=== PATIENT | female | born 1930 | race Caucasian/White ===

== ENCOUNTER 2017-12-02 14:03 | Emergency (ER) | payer MEDICARE ==
[2017-09-02 15:39] VITALS: BMI 20.1
[~2017-12-02 14:03] MED LIST: ACTOS; ASPI-1471 PO; AZIT-1 PO; BENAZEPRIL; BLOO-1318 MC; BLOO-1322 MC; BLOO-1623 MC; BLOO-188 MC; CEPH500C24 PO; CHOL10005 PO; CIPR-214 PO; CYCL-277 PO; HCTZ; INSU100I30 SQ; LANC-1149 MC; LANI SUBQ; LISI-353 PO; LISI-362 PO; LOVA40TA89 PO; LOVASTATIN; MELO-205 PO; METF-420 PO; METFORMIN; NIFE30TA7 PO; PER PO; PRE20 PO; SITA100T PO; [UNRECOGNIZED DRUG - CODE] MC; lantus
--- NOTE | 2017-12-02 14:11 | ER Report ---
History and Physical Time Seen By MD: 14:10 HPI/ROS CHIEF COMPLAINT: Dizziness HISTORY OF PRESENT ILLNESS: 86-year-old female patient presents to emergency room with complaint of dizziness. Patient states that this been going on for the last 2 days. She states that she had dizziness yesterday morning, which seemed to resolve in the afternoon. She states that this morning she was in the kitchen and felt so dizzy that she thought she was going to faint. She walked into the living room and sat down in a chair. EMS was contacted. They did come in and evaluate the patient. Patient was then brought in by her significant other to the emergency room. Patient denies having any fevers, chills, nausea, vomiting or diarrhea. Patient denies any recent changes in her medication regimen. REVIEW OF SYSTEMS: Respiratory: No cough, no dyspnea. Cardiovascular: No chest pain, no palpitations. Gastrointestinal: No vomiting, no abdominal pain. Musculoskeletal: No back pain. Allergies: Coded Allergies: No Known Allergies (Verified Allergy, Mild, 01/16/12) Home Meds Active Scripts Scopolamine (TRANSDERM-SCOP) 1.5 Mg Patch, 1.5 MG TD Q3D Y for DIZZINESS, #3 PATCH Prov:BILL LLAMAS DOUBLE BOTTOM DRIVER 12/02/17 Nifedipine (NIFEDIPINE ER) 30 Mg Tablet.er, 1 TAB PO DAILY, #90 TAB 1 Refill Prov:PETER SUBRAMANIAN MD 10/15/17 Metformin Hcl (METFORMIN HCL) 1,000 Mg Tablet, 1 TAB PO BID, #180 TAB 4 Refills Prov:PETER SUBRAMANIAN MD 10/11/17 Insulin Glargine (LANTUS) 100 Unit/Ml Soln, 5-20 UNIT SUBQ BID, #1 ML Prov:PETER SUBRAMANIAN MD 09/26/17 Lovastatin (LOVASTATIN) 40 Mg Tablet, 1 TAB PO QDAY, #90 TAB 3 Refills Prov:PETER SUBRAMANIAN MD 08/26/17 Blood-Glucose Meter (One Touch Verio) 1 Each Each, EACH MC DAILY, #1 Test blood glucose daily Length of need: 99 months Prov:PETER SUBRAMANIAN MD 12/20/16 Blood-Glucose Control, High (ONE TOUCH VERIO) 1 Each Each, 1 EACH MC DAILY, # 100 6 Refills Use one lancet daily to Test blood glucose daily Length of need: 99 months Prov:PETER SUBRAMANIAN MD 12/20/16 Blood Sugar Diagnostic (ONE TOUCH VERIO) 1 Each Strip, 1 EACH MC DAILY, #100 STRIP 6 Refills Test blood glucose daily Length of need: 99 months Prov:PETER SUBRAMANIAN MD 12/20/16 Past Medical/Surgical History Patient has a past medical history of dementia, hypertension, hyperlipidemia, back pain, type 2 diabetes, eczema. Patient has surgical history of back surgery, hysterectomy. Reviewed Nurses Notes: Yes Hx Smoking: No Smoking Status: Never Smoker Hx Alcohol Use: No Constitutional Vital Sign - Last 24 Hours 12/02/17 12/02/17 12/02/17 12/02/17 14:11 14:11 14:18 14:20 Temp 97.8 Pulse 92 88 Resp 18 B/P (MAP) 128/61 (83) 128/61 127/61 (83) Pulse Ox 93 99 O2 Delivery Room Air 12/02/17 12/02/17 12/02/17 12/02/17 14:33 14:46 14:48 15:15 Pulse 71 74 B/P (MAP) 138/61 (86) 121/63 (82) Pulse Ox 96 96 12/02/17 12/02/17 12/02/17 12/02/17 15:15 15:18 15:18 15:21 Pulse 69 83 96 B/P (MAP) 121/63 (82) 124/63 (83) 124/63 (83) 115/63 (80) Pulse Ox 92 94 97 O2 Delivery Room Air Room Air Room Air 12/02/17 12/02/17 12/02/17 12/02/17 15:21 15:38 15:43 15:58 Pulse 72 72 70 B/P (MAP) 115/63 (80) Pulse Ox 96 96 94 12/02/17 12/02/17 12/02/17 12/02/17 16:13 16:28 16:43 17:15 Pulse 71 70 77 B/P (MAP) 132/72 (92) Pulse Ox 97 96 92 12/02/17 17:18 Pulse 81 Resp 18 B/P (MAP) 132/72 (92) Pulse Ox 98 O2 Delivery Room Air Physical Exam General Appearance: The patient is alert, has no immediate need for airway protection and no current signs of toxicity. ENT: Tympanic membranes are pearly-scott, auditory canals are patent, mucous membranes are moist. Patient had very mild dizziness when looking to the left doing the Hallpike test. Respiratory: Chest is non tender, lungs are clear to auscultation. Cardiac: regular rate and rhythm Gastrointestinal: Abdomen is soft and non tender, no masses, bowel sounds normal. Musculoskeletal: Neck: Neck is supple and non tender. Extremities have full range of motion and are non tender. Skin: No rashes or lesions. DIFFERENTIAL DIAGNOSIS: After history and physical exam differential diagnosis was considered for dizziness including but not limited to peripheral and central causes of vertigo, orthostatic causes including dehydration, and blood loss. Medical Decision Making Data Points Result Diagram: 12/02/17 1446 12/02/17 1446 Laboratory Hematology Test 12/02/17 14:46 12/02/17 15:30 Red Blood Count 4.27 M/uL (4.17-5.56) Mean Corpuscular Volume 94.1 fL (80.0-96.0) Mean Corpuscular Hemoglobin 32.3 pg (26.0-33.0) Mean Corpuscular Hemoglobin Concent 34.3 g/dL (32.0-36.0) Red Cell Distribution Width 14.5 % (11.5-14.5) Mean Platelet Volume 8.3 fL (7.2-11.1) Neutrophils (%) (Auto) 76.4 % (39.4-72.5) Lymphocytes (%) (Auto) 11.3 % (17.6-49.6) Monocytes (%) (Auto) 10.5 % (4.1-12.4) Eosinophils (%) (Auto) 1.2 % (0.4-6.7) Basophils (%) (Auto) 0.6 % (0.3-1.4) Nucleated RBC Relative Count (auto) 0.0 /100WBC Neutrophils # (Auto) 8.6 K/uL (2.0-7.4) Lymphocytes # (Auto) 1.3 K/uL (1.3-3.6) Monocytes # (Auto) 1.2 K/uL (0.3-1.0) Eosinophils # (Auto) 0.1 K/uL (0.0-0.5) Basophils # (Auto) 0.1 K/uL (0.0-0.1) Nucleated RBC Absolute Count (auto) 0.01 K/uL Sodium Level 139 mmol/L (137-145) Potassium Level 4.1 mmol/L (3.5-5.0) Chloride Level 101 mmol/L (98-107) Carbon Dioxide Level 23 mmol/L (22-31) Blood Urea Nitrogen 19 mg/dl (7-18) Creatinine 1.10 mg/dl (0.52-1.04) Glomerular Filtration Rate Calc 47.3 Random Glucose 159 mg/dl (75-110) Calcium Level 9.6 mg/dl (8.4-10.2) Total Bilirubin 1.0 mg/dl (0.2-1.3) Aspartate Amino Transf (AST/SGOT) 27 U/L (0-35) Alanine Aminotransferase (ALT/SGPT) 29 U/L (0-56) Alkaline Phosphatase 93 U/L (0-126) Troponin I < 0.012 ng/ml Total Protein 7.6 gm/dl (6.3-8.2) Albumin 4.2 g/dl (3.5-5.0) Urine Color Yellow Urine Clarity Clear Urine pH 5.0 pH (4.8-9.5) Urine Specific Wilsons 1.015 Urine Protein 30 mg/dL (NEGATIVE) Urine Glucose (UA) Negative mg/dL (NEGATIVE) Urine Ketones Negative mg/dL (NEGATIVE) Urine Blood Negative (NEGATIVE) Urine Nitrite Negative (NEGATIVE) Urine Bilirubin Negative (NEGATIVE) Urine Urobilinogen Negative mg/dL (0.2-1.9) Urine Leukocyte Esterase Negative (NEGATIVE) Urine RBC 3 /HPF (0-2/HPF) Urine WBC 1 /HPF (0-5/HPF) Urine Squamous Epithelial Cells Many /LPF (</=FEW) Urine Bacteria Negative /HPF (NONE-FEW) Urine Mucus None /HPF (NONE-FEW) Chemistry Test 12/02/17 14:46 12/02/17 15:30 White Blood Count 11.2 k/uL (4.5-11.0) Red Blood Count 4.27 M/uL (4.17-5.56) Hemoglobin 13.8 g/dL (12.0-16.0) Hematocrit 40.1 % (34.0-47.0) Mean Corpuscular Volume 94.1 fL (80.0-96.0) Mean Corpuscular Hemoglobin 32.3 pg (26.0-33.0) Mean Corpuscular Hemoglobin Concent 34.3 g/dL (32.0-36.0) Red Cell Distribution Width 14.5 % (11.5-14.5) Platelet Count 306 K/uL (150-450) Mean Platelet Volume 8.3 fL (7.2-11.1) Neutrophils (%) (Auto) 76.4 % (39.4-72.5) Lymphocytes (%) (Auto) 11.3 % (17.6-49.6) Monocytes (%) (Auto) 10.5 % (4.1-12.4) Eosinophils (%) (Auto) 1.2 % (0.4-6.7) Basophils (%) (Auto) 0.6 % (0.3-1.4) Nucleated RBC Relative Count (auto) 0.0 /100WBC Neutrophils # (Auto) 8.6 K/uL (2.0-7.4) Lymphocytes # (Auto) 1.3 K/uL (1.3-3.6) Monocytes # (Auto) 1.2 K/uL (0.3-1.0) Eosinophils # (Auto) 0.1 K/uL (0.0-0.5) Basophils # (Auto) 0.1 K/uL (0.0-0.1) Nucleated RBC Absolute Count (auto) 0.01 K/uL Glomerular Filtration Rate Calc 47.3 Calcium Level 9.6 mg/dl (8.4-10.2) Total Bilirubin 1.0 mg/dl (0.2-1.3) Aspartate Amino Transf (AST/SGOT) 27 U/L (0-35) Alanine Aminotransferase (ALT/SGPT) 29 U/L (0-56) Alkaline Phosphatase 93 U/L (0-126) Troponin I < 0.012 ng/ml Total Protein 7.6 gm/dl (6.3-8.2) Albumin 4.2 g/dl (3.5-5.0) Urine Color Yellow Urine Clarity Clear Urine pH 5.0 pH (4.8-9.5) Urine Specific Wilsons 1.015 Urine Protein 30 mg/dL (NEGATIVE) Urine Glucose (UA) Negative mg/dL (NEGATIVE) Urine Ketones Negative mg/dL (NEGATIVE) Urine Blood Negative (NEGATIVE) Urine Nitrite Negative (NEGATIVE) Urine Bilirubin Negative (NEGATIVE) Urine Urobilinogen Negative mg/dL (0.2-1.9) Urine Leukocyte Esterase Negative (NEGATIVE) Urine RBC 3 /HPF (0-2/HPF) Urine WBC 1 /HPF (0-5/HPF) Urine Squamous Epithelial Cells Many /LPF (</=FEW) Urine Bacteria Negative /HPF (NONE-FEW) Urine Mucus None /HPF (NONE-FEW) Urinalysis Test 12/02/17 15:30 Urine Color Yellow Urine Clarity Clear Urine pH 5.0 pH (4.8-9.5) Urine Specific Wilsons 1.015 Urine Protein 30 mg/dL (NEGATIVE) Urine Glucose (UA) Negative mg/dL (NEGATIVE) Urine Ketones Negative mg/dL (NEGATIVE) Urine Blood Negative (NEGATIVE) Urine Nitrite Negative (NEGATIVE) Urine Bilirubin Negative (NEGATIVE) Urine Urobilinogen Negative mg/dL (0.2-1.9) Urine Leukocyte Esterase Negative (NEGATIVE) Urine RBC 3 /HPF (0-2/HPF) Urine WBC 1 /HPF (0-5/HPF) Urine Squamous Epithelial Cells Many /LPF (</=FEW) Urine Bacteria Negative /HPF (NONE-FEW) Urine Mucus None /HPF (NONE-FEW) EKG/Imaging EKG Interpretation 12 lead EKG: Rhythm: normal sinus rhythm with a ventricular rate of 71 bpm Rule: normal QRS: normal ST segments: Nonspecific T-wave abnormality Imaging EXAMINATION: Chest radiographs 2 views HISTORY: Dizziness. Headache. COMPARISON: 09/01/2017. FINDINGS: PA and lateral views of the chest are submitted. Lines/tubes: None. Lungs/pleura: Stable mild scarring in the left lung base. No consolidation, pleural effusion, or pneumothorax. Heart: Negative. Mediastinum: Negative. Bony structures/body wall: Mild degenerative changes in the thoracic spine. No acute osseous abnormality. IMPRESSION: Stable mild scarring in the left lung base. No acute cardiopulmonary process. Report Dictated By: Alex Gómez MD at 12/02/2017 3:14 PM Report E-Signed By: Alex Gómez MD at 12/02/2017 3:16 PM EXAMINATION: Head CT without intravenous contrast HISTORY: Headache. TECHNIQUE: Axial images were obtained from the skull base to the vertex without intravenous contrast. Sagittal and coronal reformatted images are also submitted. One of the following dose optimization techniques was utilized in the performance of this exam: Automated exposure control; adjustment of the mA and/ or kV according to the patient's size; or use of an iterative reconstruction technique. Specific details can be referenced in the facility's radiology CT exam operational policy. COMPARISON: None. FINDINGS: Brain volume: Normal. Ventricles: Normal. Acute ischemic changes: None. Hemorrhage: None. Masses / edema: None. Scott-white: Negative. White matter: Negative. Vessels: Mild carotid siphon and vertebral artery calcification. Normal density in the dural venous sinuses. Extra-axial: Negative. Calvarium / skull base: Negative. Visualized sinuses / orbits: Mild mucosal thickening in the maxillary sinuses. IMPRESSION: No acute intracranial abnormality. Report Dictated By: Alex Gómez MD at 12/02/2017 3:21 PM Report E-Signed By: lAex Gómez MD at 12/02/2017 3:27 PM ED Course/Re-evaluation ED Course Patient was admitted to exam room, history and physical were obtained. Differential diagnoses were considered. On examination patient had mild dizziness with Hallpike test when looking to the left. A CBC, CMP, chest x-ray, EKG, troponin, urinalysis, CT scan of the head were done. The lab results were unremarkable, chest x-ray was negative, CT scan of the head was also negative. Patient received a dose of Toradol as well as scopolamine patch. On reexamination patient states that she still has a headache, which is unimproved but states that she would like to go home at this time. Patient states that she' s not noticed any more dizziness, however she is not been up moving around. We will go ahead and discharge patient home. She is follow-up with her primary care provider. She is return to emergency room if condition worsens. Patient verbalized understanding and agreement. Decision to Disposition Date: Dec 02, 2017 Decision to Disposition Time: 17:08 Depart Departure Latest Vital Signs Vital Signs Date Time Temp Pulse Resp B/P (MAP) Pulse Ox O2 Delivery O2 Flow Rate FiO2 12/02/17 17:18 81 18 132/72 (92) 98 Room Air 12/02/17 14:11 97.8 Impression: Primary Impression: Dizziness Condition: Improved Disposition: HOME OR SELF-CARE Referrals: PETER SUBRAMANIAN MD (PCP) New Scripts Scopolamine (TRANSDERM-SCOP) 1.5 Mg Patch 1.5 MG TD Q3D Y for DIZZINESS, #3 PATCH Prov: BILL LLAMAS 12/02/17 Patient Instructions: Dizziness (ED) Additional Instructions: Increase fluid intake. Get plenty of rest. Follow up with your primary care provider in the next week. Take your medications as prescribed. Return to the ER if condition worsens. BILL LLAMAS Dec 02, 2017 14:10
[2017-12-02 14:57] LABS: PLATELET COUNT, AUTOMATED 306 K/uL (150-450)
--- NOTE | 2017-12-02 14:57 | EKG ---
FACILITY: [facility] [place] PATIENT NAME: CHEPE PÉREZ : [id number] MR: [id number] V: [id number] EXAM DATE: ORDERING PHYSICIAN: BILL LLAMAS TECHNOLOGIST: Test Reason : Blood Pressure : / mmHG Vent. Rate : 071 BPM Atrial Rate : 071 BPM P-R Int : 156 ms QRS Dur : 106 ms QT Int : 362 ms P-R-T Axes : 039 034 164 degrees QTc Int : 393 ms Normal sinus rhythm Nonspecific T wave abnormality Abnormal ECG When compared with ECG of 01-SEP-2017 13:44, Left anterior fascicular block is no longer present Nonspecific T wave abnormality now evident in Inferior leads Confirmed by WOLF ZARAGOZA ([id number]) on 12/02/2017 9:44:52 PM Referred By: Confirmed By:WOLF ZARAGOZA
--- NOTE | 2017-12-02 15:21 | RADIOLOGY IMAGING REPORT ---
[place] [facility] [place] NAME: Martha Beckett : 1930 MR: [id number] V: [id number] EXAM DATE: ORDERING PHYSICIAN: BILL LLAMAS TECHNOLOGIST: Location: [facility] [place] Patient: Martha Beckett : 1930 Visit/Account:[id number] Date of Sevice: 12/02/2017 EXAMINATION: Chest radiographs 2 views HISTORY: Dizziness. Headache. COMPARISON: 09/01/2017. FINDINGS: PA and lateral views of the chest are submitted. Lines/tubes: None. Lungs/pleura: Stable mild scarring in the left lung base. No consolidation, pleural effusion, or pne umothorax. Heart: Negative. Mediastinum: Negative. Bony structures/body wall: Mild degenerative changes in the thoracic spine. No acute osseous abnorma lity. IMPRESSION: Stable mild scarring in the left lung base. No acute cardiopulmonary process. Report Dictated By: Alex Gómez MD at 12/02/2017 3:14 PM Report E-Signed By: Alex Gómez MD at 12/02/2017 3:16 PM WSN:[id number]
--- NOTE | 2017-12-02 15:31 | RADIOLOGY IMAGING REPORT ---
FACILITY: [facility] PATIENT NAME: Martha Beckett : 1930 MR: [id number] V: [id number] EXAM DATE: ORDERING PHYSICIAN: BILL LLAMAS TECHNOLOGIST: Location: [facility] [place] Patient: Martha Beckett : 1930 Visit/Account:[id number] Date of Sevice: 12/02/2017 EXAMINATION: Head CT without intravenous contrast HISTORY: Headache. TECHNIQUE: Axial images were obtained from the skull base to the vertex without intravenous contrast . Sagittal and coronal reformatted images are also submitted. One of the following dose optimization techniques was utilized in the performance of this exam: Autom ated exposure control; adjustment of the mA and/or kV according to the patient's size; or use of an i terative reconstruction technique. Specific details can be referenced in the facility's radiology C T exam operational policy. COMPARISON: None. FINDINGS: Brain volume: Normal. Ventricles: Normal. Acute ischemic changes: None. Hemorrhage: None. Masses / edema: None. Scott-white: Negative. White matter: Negative. Vessels: Mild carotid siphon and vertebral artery calcification. Normal density in the dural venous sinuses. Extra-axial: Negative. Calvarium / skull base: Negative. Visualized sinuses / orbits: Mild mucosal thickening in the maxillary sinuses. IMPRESSION: No acute intracranial abnormality. Report Dictated By: Alex Gómez MD at 12/02/2017 3:21 PM Report E-Signed By: Alex Gómez MD at 12/02/2017 3:27 PM WSN:[id number]
[2017-12-02] MEDS ORDERED: KETOROLAC 15 MG/ML VIAL IVP ONE (15:40)
[2017-12-02] MEDS ORDERED: SCOPOLAMINE 1.5 MG PATCH TD ONE (15:40)
[2017-12-02] MEDS ORDERED: SCOT TD (17:08)
[2017-12-02 17:18] VITALS: BP 132/72
[2017-12-03] MEDS ORDERED: LANI SUBQ (13:45)
[2017-12-04] MEDS ORDERED: PEN1DIS. MC (16:33)
== END 2017-12-02 17:23 | disposition home or self-care (01) ==
LOC: ER 14:31
DX: R42 Dizziness and giddiness (principal); R51 Headache
CPT/HCPCS: 70450; 71046; 81001; 84484; 85025; 93005; 96374; 99284; A9270; J1885; 82040; 82247; 82310; 82374; 82435; 82565; 82947; 84075; 84132; 84155; 84295; 84450; 84460; 84520

== ENCOUNTER → 2017-12-16 | Outpatient (CLI) | payer MEDICARE ==
[2017-09-02 15:39] VITALS: BMI 20.1
[~2017-12-16] MED LIST changes: +PEN1DIS. MC; +SCOT TD
== END ==
LOC: LAB 14:17
PROVIDERS: ATTEND Emergency Medicine
DX: E11.9 Type 2 diabetes mellitus without complications (principal)
CPT/HCPCS: 36415; 83036

== ENCOUNTER → 2018-01-29 | Outpatient (CLI) | payer MEDICARE ==
[2017-09-02 15:39] VITALS: BMI 20.1
[~2018-01-29] MED LIST changes: +NIFE-13 PO; -NIFE30TA7 PO
--- NOTE | 2018-01-29 15:10 | EKG ---
FAC[place] [facility] [place]IENT NAME: CHEPE PÉREZ : [id number] MR: [id number] V: [id number] EXAM DATE: ORDERING PHYSICIAN: PETER SUBRAMANIAN TECHNOLOGIST: VIPUL WILSON Test Reason : IRREGULAR HEARTBEAT Blood Pressure : / mmHG Vent. Rate : 074 BPM Atrial Rate : 074 BPM P-R Int : 172 ms QRS Dur : 096 ms QT Int : 372 ms P-R-T Axes : 052 -59 059 degrees QTc Int : 412 ms Normal sinus rhythm Left axis deviation Abnormal ECG No previous ECGs available Confirmed by PETER SUBRAMANIAN ([id number]) on 01/30/2018 8:08:29 AM Referred By: Confirmed By:PETER SUBRAMANIAN
== END ==
LOC: RESP 13:46
PROVIDERS: ATTEND Emergency Medicine
DX: I49.9 Cardiac arrhythmia, unspecified (principal); R94.31 Abnormal electrocardiogram [ECG] [EKG]

== ENCOUNTER → 2018-01-31 | Outpatient (CLI) | payer MEDICARE ==
[2017-09-02 15:39] VITALS: BMI 20.1
--- NOTE | 2018-02-03 07:41 | RT HOLTER TEST ---
FACILITY: [facility] [place] PATIENT NAME: CHEPE PÉREZ : [id number] MR: [id number] V: [id number] EXAM DATE: ORDERING PHYSICIAN: PETER SUBRAMANIAN TECHNOLOGIST: Reji Hook-up date: 2018-01-31 13:40:00 Duration: 47:59:00 Test Indications: DIZZY Medications: Metformin 622060 QRS complexes 370 Ventricular ectopics which represent <1 % of total QRS comp. 671 Supraventricular ectopics which represent <1 % of total QRS comp. * Paced QRS complexes which represent % of total QRS comp. VENTRICULAR ECTOPY 368 Isolated 19 Bigeminal Cycles 1 Couplets 0 Runs 0 Beats in Runs * Beats LONGEST at * BPM at :: -- * Beats FASTEST at * BPM at :: -- SUPRAVENTRICULAR ECTOPY 542 Isolated 33 Couplets 17 Runs 63 Beats in Runs 6 Beats LONGEST at 137 BPM at 14:51:30 2018-01-31 3 Beats FASTEST at 180 BPM at 14:18:11 2018-01-31 HEART RATES 52 MIN at 10:48:50 2018-02-01 70 AVG 125 MAX at 12:07:41 2018-02-01 LONGEST RR 1.672 secs at 07:18:29 2018-02-02 S-T LEVELS Channel 1 -12.800 mm MIN at 13:40:00 2018-01-31 -12.800 mm MAX at 13:40:00 2018-01-31 Channel 2 -12.800 mm MIN at 13:40:00 2018-01-31 -12.800 mm MAX at 13:40:00 2018-01-31 Channel 3 -12.800 mm MIN at 13:40:00 2018-01-31 -12.800 mm MAX at 13:40:00 2018-01-31 There were no reported symptoms during the test. The patient had 17 short runs (i.e. 3-5 beats) of s upraventricular ectopy. There was occasional ventricular ectopy. Confirmed by MIRYAM VALADEZ ([id number]) on 02/03/2018 7:40:27 AM Referred By: Overread By: MIRYAM VALADEZ
== END ==
LOC: RESP 05:51
PROVIDERS: ATTEND Emergency Medicine
DX: R42 Dizziness and giddiness (principal)
CPT/HCPCS: 93225; 93226

== ENCOUNTER → 2018-03-20 | Outpatient (CLI) | payer MEDICARE ==
[2017-09-02 15:39] VITALS: BMI 20.1
[~2018-03-20] MED LIST changes: +MEMA1CAP PO
== END ==
LOC: LAB 14:46
PROVIDERS: ATTEND Emergency Medicine
DX: E11.9 Type 2 diabetes mellitus without complications (principal)
CPT/HCPCS: 36415; 82310; 82374; 82435; 82565; 82947; 83036; 84132; 84295; 84520; 84681

== ENCOUNTER → 2018-07-23 | Outpatient (CLI) | payer MEDICARE ==
[2017-09-02 15:39] VITALS: BMI 20.1
[~2018-07-23] MED LIST changes: +AMLO-96 PO; +INSU200I4 SC; +LISI20TA29 PO; +MEMA10TA3 PO; +MEMA5TAB14 PO; -METF-420 PO; +METF-421 PO
== END ==
LOC: LAB 15:37
PROVIDERS: ATTEND Emergency Medicine
DX: E53.8 Deficiency of other specified B group vitamins (principal); E11.9 Type 2 diabetes mellitus without complications
CPT/HCPCS: 36415; 82607; 83036

== ENCOUNTER 2018-09-17 23:08 | Emergency (ER) | payer MEDICARE ==
[2017-09-02 15:39] VITALS: Wt 54.2 kg
[~2018-09-17 23:08] MED LIST changes: +AMLO-111 PO; -AMLO-96 PO; -METF-421 PO; +METF-452 PO
--- NOTE | 2018-09-17 23:24 | ER Report ---
History and Physical Time Seen By : 23:14 HPI/ROS CHIEF COMPLAINT: hypoglycemia HISTORY OF PRESENT ILLNESS: This is an 87 year old female. She was feeling poorly with some shakiness and nausea. Checked her blood sugar and was low in the 40s. Drank some coke and came to the ER. She is insulin dependent diabetic. Not much to eat tonight. Took her Tresiba insulin, no short acting insulin. Her gives her insulin. Recently switched from Lantus 10units twice a day to Tresiba 20units once a day. Change was about 7 days ago. On further questioning, her gives the insulin, 20 clicks on the pen; however, the Tresiba pen is actually 2 units per click, so it appears he has been giving 40 units instead of 20 units. Looked at the pen device and there is 280 units missing from the pen, consistent with this. She has been feeling well otherwise. Denies any further problems right now. Allergies: Coded Allergies: No Known Allergies (Verified Allergy, Mild, 09/18/18) scopolamine (Verified Adverse Reaction, Intermediate, Dry mouth, confusion,slurred speech, 09/18/18) Home Meds Active Scripts Lisinopril (LISINOPRIL) 20 Mg Tablet, 20 MG PO QDAY, #90 TAB Prov:PETER SUBRAMANIAN MD 09/03/18 Amlodipine Besylate (AMLODIPINE BESYLATE) 5 Mg Tablet, 1 TAB PO QDAY, #30 TAB 1 Refill Prov:PETER SUBRAMANIAN MD 07/29/18 Insulin Degludec (Tresiba Flextouch U-200) 200 Unit/Ml (3 Ml) Insuln.pen, 20 UNITS SC DAILY, #3 MISC 3 Refills Prov:PTEER SUBRAMANIAN MD 07/23/18 Memantine HCl 10 MG (Memantine HCl 10 MG) 10 Mg Tablet, 1 TAB PO BID, #180 TAB 3 Refills Prov:PETER SUBRAMANIAN MD 07/23/18 Insulin Glargine (LANTUS) 100 Unit/Ml Soln, 10-11 UNIT SUBQ BID, #1 BOX 11 Refills Prov:PETER SUBRAMANIAN MD 07/23/18 Pen Needle, Diabetic, Safety (PEN NEEDLE) 1 Each Dis.needle, EACH MC DAILY, #1 use to inject Lantus daily Prov:PETER SUBRAMANIAN MD 12/13/17 Scopolamine (TRANSDERM-SCOP) 1.5 Mg Patch, 1.5 MG TD Q3D PRN for DIZZINESS, #3 PATCH Prov:BILL LLAMAS WALL SCRAPER 12/02/17 Metformin Hcl (METFORMIN HCL) 1,000 Mg Tablet, 1 TAB PO BID, #180 TAB 4 Refills Prov:PETER SUBRAMANIAN MD 10/11/17 Lovastatin (LOVASTATIN) 40 Mg Tablet, 1 TAB PO QDAY, #90 TAB 3 Refills Prov:PETER SUBRAMANIAN MD 08/26/17 Blood-Glucose Meter (One Touch Verio) 1 Each Each, EACH MC DAILY, #1 Test blood glucose daily Length of need: 99 months Prov:PETER SUBRAMANIAN MD 12/20/16 Blood-Glucose Control, High (ONE TOUCH VERIO) 1 Each Each, 1 EACH MC DAILY, #100 6 Refills Use one lancet daily to Test blood glucose daily Length of need: 99 months Prov:PETER SUBRAMANIAN MD 12/20/16 Blood Sugar Diagnostic (ONE TOUCH VERIO) 1 Each Strip, 1 EACH MC DAILY, #100 STRIP 6 Refills Test blood glucose daily Length of need: 99 months Prov:PETER SUBRAMANIAN MD 12/20/16 Reviewed Nurses Notes: Yes Hx Smoking: No Smoking Status: Never Smoker Hx Substance Use Disorder: No Hx Alcohol Use: No Constitutional Vital Sign - Last 24 Hours 09/17/18 09/17/18 09/17/18 09/17/18 23:16 23:30 23:38 23:53 Temp 97.8 Pulse 79 78 75 Resp 20 B/P (MAP) 171/73 175/75 (108) Pulse Ox 96 93 94 O2 Delivery Room Air 09/18/18 09/18/18 09/18/18 09/18/18 00:00 00:05 00:20 00:30 Pulse 77 73 B/P (MAP) 181/80 (113) 178/75 (109) Pulse Ox 95 92 09/18/18 09/18/18 09/18/18 00:35 00:50 01:00 Pulse 72 73 B/P (MAP) 184/86 (118) Pulse Ox 96 94 Physical Exam General Appearance: Alert, no distress. Eyes: Pupils equal and round no injection. ENT: Normal oral mucosa. Moist mucous membranes. Respiratory: Lungs are clear. Cardiac: regular rate and rhythm Neuro: Alert and oriented x3 Musculoskeletal: Extremities have full range of motion. Non tender. Skin: No rashes or lesions. DIFFERENTIAL DIAGNOSIS: After history and physical exam differential diagnosis was considered for hypoglycemia due to poor oral intake tonight and getting too much of her long acting insulin over the last week. Medical Decision Making Data Points Laboratory Hematology Test 09/18/18 01:02 Whole Blood Glucose 97 mg/DL (75-110) Chemistry Test 09/18/18 01:02 Whole Blood Glucose 97 mg/DL (75-110) ED Course/Re-evaluation ED Course Had the patient eat here in the ER and did q30 minute blood sugars, improving over a couple of hours. They feel comfortable watching at home and continuing with oral intake to keep the sugars up. Will reduce to the appropriate 20 unit dose and follow-up with primary care. Decision to Disposition Date: Sep 18, 2018 Decision to Disposition Time: 01:10 Depart Departure Latest Vital Signs Vital Signs Date Time Temp Pulse Resp B/P (MAP) Pulse Ox O2 Delivery O2 Flow Rate FiO2 09/18/18 01:00 184/86 (118) 09/18/18 00:50 73 94 09/17/18 23:16 97.8 20 Room Air Impression: Primary Impression: Hypoglycemia due to insulin Condition: Improved Disposition: HOME OR SELF-CARE Referrals: PETER SUBRAMANIAN MD (PCP) Patient Instructions: Hypoglycemia in a Person with Diabetes (ED) Additional Instructions: The low blood sugar tonight seems to have been caused by accidentally taking too much Tresiba insulin. Watch tonight for any further decrease in blood sugar and correct with further intake of food. Return to the ER tonight if having trouble keeping blood sugar at a normal at a normal level or above. MICHAEL BARAJAS MD Sep 17, 2018 23:24
[2018-09-18 01:00] VITALS: BP 184/86
== END 2018-09-18 01:19 | disposition home or self-care (01) ==
LOC: ER 09-18 00:13
DX: E11.649 Type 2 diabetes mellitus with hypoglycemia without coma (principal)
CPT/HCPCS: 36416; 82948; 99281

== ENCOUNTER → 2018-09-26 | Outpatient (CLI) | payer MEDICARE ==
[2017-09-02 15:39] VITALS: BMI 20.1
[2018-09-26 09:57] LABS: PLATELET COUNT, AUTOMATED 342 K/uL (150-450)
== END ==
LOC: LAB 09:35
PROVIDERS: ATTEND Emergency Medicine
DX: E11.9 Type 2 diabetes mellitus without complications (principal); E55.9 Vitamin D deficiency, unspecified; N18.9 Chronic kidney disease, unspecified
CPT/HCPCS: 36415; 82040; 82247; 82306; 82310; 82374; 82435; 82565; 82947; 83036; 84075; 84132; 84155; 84295; 84450; 84460; 84520; 85025

== ENCOUNTER → 2019-05-20 | Outpatient (CLI) | payer MEDICARE ==
[2017-09-02 15:39] VITALS: BMI 20.1
[~2019-05-20] MED LIST changes: -AMLO-111 PO; +AMLO-125 PO
[2019-05-20 10:18] LABS: PLATELET COUNT, AUTOMATED 267 K/uL (150-450)
== END ==
LOC: LAB 09:49
PROVIDERS: ATTEND Emergency Medicine
DX: E53.8 Deficiency of other specified B group vitamins (principal); E11.9 Type 2 diabetes mellitus without complications; I10 Essential (primary) hypertension
CPT/HCPCS: 36415; 82040; 82247; 82306; 82310; 82374; 82435; 82565; 82607; 82947; 83036; 84075; 84132; 84155; 84295; 84443; 84450; 84460; 84520; 85025

== ENCOUNTER → 2019-06-12 | Outpatient (CLI) | payer MEDICARE ==
[2017-09-02 15:39] VITALS: BMI 20.1
== END ==
LOC: LAB 14:16
PROVIDERS: ATTEND Surgery
DX: B07.9 Viral wart, unspecified (principal)
CPT/HCPCS: 88305

== ENCOUNTER → 2019-06-29 | Outpatient (CLI) | payer MEDICARE ==
[2017-09-02 15:39] VITALS: BMI 20.1
== END ==
LOC: LAB 12:01
PROVIDERS: ATTEND Emergency Medicine
DX: R74.8 Abnormal levels of other serum enzymes (principal); N18.3 Chronic kidney disease, stage 3 (moderate); I12.9 Hypertensive chronic kidney disease with stage 1 through stage 4 chronic kidney disease, or unspecified chronic kidney disease
CPT/HCPCS: 36415; 83540; 83550; 86706; 86707; 87340; 87350; G0472; 82040; 82247; 82310; 82374; 82435; 82565; 82947; 84075; 84132; 84155; 84295; 84450; 84460; 84520; 86803